=== PATIENT | female | born 1985 | race Caucasian/White ===

== ENCOUNTER → 2017-09-13 | Outpatient (CLI) | payer SELFPAY ==
[2017-09-13 19:57] LABS: BASO % 0.3 % (0.0-1.0); EOS # 0.2 10^3/uL (0.0-0.50); HEMOGLOBIN 13.6 g/dl (12.0-16.0); IMMATURE GRANULOCYTE % 0.4 % (0-0); LYMPH # 1.5 10^3/uL (1.5-4.5); LYMPH % 15.8 % (24.0-44.0); MEAN CORPUSCULAR HEMOGLOBIN 29.8 pg (27.0-33.0); MEAN CORPUSCULAR VOLUME 87.5 fl (80.0-96.0); MONO # 0.5 10^3/uL (0.0-0.8); MONO % 4.9 % (0.0-5.0); NEUTROPHILS # 7.4 10^3/uL (1.8-7.7); NEUTROPHILS % 76.6 % (36.0-66.0); PLATELET COUNT, AUTOMATED 278 10^3/uL (150-450); RED BLOOD COUNT 4.57 10^6/uL (4.00-5.40); RED CELL DISTRIBUTION WIDTH 12.5 % (11.5-14.5); WHITE BLOOD COUNT 9.6 10^3/uL (4.0-10.0)
[2017-09-13 21:43] LABS: CHLAMYDIA DNA AMPLIFICATION NEGATIVE (NEGATIVE); GC DNA AMPLIFICATION NEGATIVE (NEGATIVE)
[2017-09-14 13:22] LABS: RUBELLA IgG QUALITATIVE IMMUNE (IMMUNE)
[2017-09-14 14:38] LABS: HBsAg Prenatal NEGATIVE (NEGATIVE)
[2017-09-14 15:00] LABS: HEPATITIS C VIRUS ABY INDEX < 0.0 INDEX (<0.8)
[2017-09-14 15:01] LABS: HIV 1&2 SCREEN CENTAUR NEGATIVE (NEGATIVE)
== END ==
LOC: M SMT 14:22
DX: Z36.89 Encounter for other specified antenatal screening (principal); Z3A.11 11 weeks gestation of pregnancy
CPT/HCPCS: 86762

== ENCOUNTER → 2018-01-14 | Outpatient (CLI) | payer SELFPAY ==
[2018-01-14 11:06] LABS: HEMATOCRIT 37.8 % (36.0-47.0); HEMOGLOBIN 12.6 g/dl (12.0-15.5); MEAN CORPUSCULAR HEMOGLOBIN 30.3 pg (27.0-33.0); MEAN CORPUSCULAR HGB CONC 33.3 g/dl (32.0-36.5); MEAN CORPUSCULAR VOLUME 90.9 fl (80.0-96.0); PLATELET COUNT, AUTOMATED 215 10^3/uL (150-450); RED BLOOD COUNT 4.16 10^6/uL (4.00-5.40); RED CELL DISTRIBUTION WIDTH 12.6 % (11.5-14.5)
[2018-01-15 07:22] LABS: GLUCOSE CHALLENGE TEST 1 HOUR 95 MG/DL (LESS THAN 140)
== END ==
LOC: M SMT 08:01
DX: Z36.2 Encounter for other antenatal screening follow-up (principal); Z3A.28 28 weeks gestation of pregnancy; Z36.89 Encounter for other specified antenatal screening
CPT/HCPCS: 82950

== ENCOUNTER → 2018-03-08 | Outpatient (REF) | payer SELFPAY | LOC: M LAB REF 16:56 | DX: Z34.83 Encounter for supervision of other normal pregnancy, third trimester (principal) ==

== ENCOUNTER → 2018-04-03 | Outpatient (REF) | payer SELFPAY ==
[2018-04-03 14:57] LABS: CREATININE,RANDOM URINE 18.4 MG/DL
== END ==
LOC: M LAB REF 13:51
DX: Z34.83 Encounter for supervision of other normal pregnancy, third trimester (principal)

== ENCOUNTER 2018-04-05 02:07 | Inpatient (IN) | payer SELFPAY ==
[2018-04-05] MEDS: LACTATED RINGER'S 1000 ML IV (03:30)
[2018-04-05 03:41] LABS: HEMATOCRIT 41.8 % (36.0-47.0); HEMOGLOBIN 14.4 g/dl (12.0-15.5); MEAN CORPUSCULAR HEMOGLOBIN 30.4 pg (27.0-33.0); MEAN CORPUSCULAR HGB CONC 34.4 g/dl (32.0-36.5); MEAN CORPUSCULAR VOLUME 88.2 fl (80.0-96.0); PLATELET COUNT, AUTOMATED 226 10^3/uL (150-450); RED BLOOD COUNT 4.74 10^6/uL (4.00-5.40); RED CELL DISTRIBUTION WIDTH 12.6 % (11.5-14.5); WHITE BLOOD COUNT 17.6 10^3/uL (4.0-10.0)
[2018-04-05] MEDS ORDERED: FENTANYL 2MCG/ML ROPIVACAINE 0.2% IN 0.9% NACL 200ML IVBAG As Ordered (04:08)
[2018-04-05] MEDS: LR 1,000 ML IV ×4 (04:25→21:52)
[2018-04-05] MEDS ORDERED: EPIDURAL COMMENT XX (07:30)
[2018-04-05] MEDS ORDERED: ONDANSETRON 4MG/2ML VIAL (J2405) IV ×2 (07:30→11:45)
[2018-04-05] MEDS ORDERED: EPIDURAL/PCA KEYS XX (07:30)
[2018-04-05] MEDS ORDERED: LACTATED RINGER'S 1000 ML IV (07:30)
[2018-04-05] MEDS ORDERED: ePHEDrine SULFATE 25 MG/5 ML(5MG/ML) SYRINGE IV (07:30)
[2018-04-05] MEDS ORDERED: diphenhydrAMINE INJ 50MG/ML VIAL (J1200) IV (07:30)
[2018-04-05] MEDS ORDERED: FENTANYL/ROPIVACAINE/NACL BAG 200 ML EPIDURAL (07:30)
[2018-04-05] MEDS ORDERED: REFRIGERATOR IV KEYS XX (07:30)
[2018-04-05] MEDS ORDERED: NALOXONE INJ 0.4 MG/1 ML VIAL (J2310) IV (07:30)
[2018-04-05] MEDS: PRENATAL VITAMINS CHEWABLE TABLET PO (09:00)
[2018-04-05] MEDS ORDERED: OXYTOCIN 30 UNITS IN 0.9% NaCl 500ML IV BAG (J2590) As Ordered (10:49)
[2018-04-05] MEDS: OXYTOCIN DRIP 30 UNITS in APPROPRIATE DILUENT 1 EA IV (11:39)
[2018-04-05] MEDS ORDERED: DOCUSATE SODIUM 100 MG CAP PO (11:45)
[2018-04-05] MEDS ORDERED: DIBUCAINE 1% OINTMENT 30GM TOP (11:45)
[2018-04-05] MEDS ORDERED: PROMETHAZINE 25 MG TAB PO (11:45)
[2018-04-05] MEDS: RHOGAM 300 MCG (1500 IU) INJ (J2790) IM (14:53)
[2018-04-05] MEDS: MEASLES,MUMPS,RUBELLA VACCINE INJ (MMR-II) (90707) SC (14:53)
[2018-04-05] MEDS: IBUPROFEN 800 MG TAB PO (16:43)
[2018-04-06] MEDS: IBUPROFEN 800 MG TAB PO (00:26)
[2018-04-06] MEDS: ACETAMINOPHEN 500 MG TAB PO (05:35)
[2018-04-06] MEDS: PRENATAL VITAMINS CHEWABLE TABLET PO (08:03)
[2018-04-07] MEDS: PRENATAL VITAMINS CHEWABLE TABLET PO (08:16)
== END 2018-04-07 13:15 | disposition home or self-care (01) | DRG 560 ==
LOC: M LDO 02:07 → M LDI 03:38 → M OBS 18:12
PROVIDERS: Advanced Practice Midwife
PROC: 10E0XZZ Delivery of Products of Conception, External Approach (ICD-10-PCS; principal; 2018-04-05)
PROC: 0HQ9XZZ Repair Perineum Skin, External Approach (ICD-10-PCS; 2018-04-05)
DX: O48.0 Post-term pregnancy (principal); O70.0 First degree perineal laceration during delivery; Z37.0 Single live birth; Z3A.40 40 weeks gestation of pregnancy

== ENCOUNTER → 2018-04-05 | Outpatient (CLI) | payer SELFPAY | LOC: M LDO 02:01 | DX: O48.0 Post-term pregnancy (principal) ==

== ENCOUNTER → 2023-05-25 | Outpatient (REF) | payer SELFPAY, OTHER ==
[~2023-05-25] MED LIST: COLA100C5 PO; IBUP80TA PO; MAPA500T2 PO; PHEN25IN3 PO; PRENTAB9 PO
== END ==
LOC: M SFHCWAGY 12:35
PROVIDERS: ATTEND Nurse Practitioner Family
DX: Z12.4 Encounter for screening for malignant neoplasm of cervix (principal)